=== PATIENT | male | born 1970 | race Caucasian/White ===

== ENCOUNTER → 2025-04-30 | Outpatient (CLI) | payer OTHER ==
--- NOTE | 2025-04-30 12:31 | HMCIMG ---
NM GASTRIC EMPTYING STUDY REASON: Nausea. COMPARISON: None TECHNIQUE: Nuclear gastric emptying study was performed with 1.5 mCi of technetium sulfa colloid with scrambled eggs through oral route. FINDINGS: T half of gastric emptying 53 minutes. IMPRESSION: Normal gastric emptying with T half of 53 minutes.
== END | disposition home or self-care (01) ==
LOC: RAH 07:08
PROVIDERS: ATTEND Family Medicine
DX: R11.0 Nausea (principal)
CPT/HCPCS: 78264; A9541